=== PATIENT | male | born 1950 | race Caucasian/White ===

== ENCOUNTER 2017-07-27 08:43 | Outpatient (CLI) | payer MEDICARE, BC | END 2017-07-27 08:44 | disposition home or self-care (01) | LOC: CTENTCT 08:43 | PROVIDERS: ATTEND Otolaryngology Plastic Surgery within the Head & Neck | DX: J32.8 Other chronic sinusitis (principal) | CPT/HCPCS: 70486 ==

== ENCOUNTER 2017-07-29 07:49 | Day surgery (SDC) | payer MEDICARE, BC ==
[2017-07-28 13:46] VITALS: BMI 24.9
[2017-07-29 08:36] LABS: Hematocrit 43.1 % (42.0-52.0)
[2017-07-29] MEDS ORDERED: Oxymetazoline HCl 0.05% ( 15 ML ) ONE ×2 (08:42→10:04)
[2017-07-29 08:55] LABS: Anion Gap 7 mmol/L (10-20); BUN (Urea Nitrogen) 14 mg/dL (8.4-25.7); Calc. Creatinine Clearance 88 mL/min (70-130); Calcium 9.2 mg/dL (7.8-10.44); Carbon Dioxide 31 mmol/L (23-31); Chloride 104 mmol/L (98-107); Estimated GFR-MDRD 69
[2017-07-29] MEDS ORDERED: Fentanyl 100 MCG/2 ML VIAL ONE (10:02)
[2017-07-29] MEDS ORDERED: Lidocaine 2% w/Epinephrine 1:200K 20 ML VIAL ONE (10:03)
[2017-07-29] MEDS ORDERED: Bacitracin Zinc Ointment 30 gm TUBE ONE (10:04)
[2017-07-29] MEDS ORDERED: Lidocaine 1% PF 5 ML VIAL ONE (10:15)
[2017-07-29] MEDS ORDERED: Metoclopramide HCl 10 MG/2 ML VIAL ONE (10:15)
[2017-07-29] MEDS ORDERED: Ondansetron HCl/PF 4 MG/2 ML Vial ONE (10:15)
[2017-07-29] MEDS ORDERED: Succinylcholine Chloride 20 MG/ML 10 ml SYRINGE FS ONE (10:15)
[2017-07-29] MEDS ORDERED: Propofol 200 MG/20 ML VIAL ONE (10:15)
[2017-07-29] MEDS ORDERED: Dexamethasone 20 MG/5 ML VIAL ONE (10:15)
[2017-07-29] MEDS ORDERED: Ketorolac Tromethamine 30 MG/ML VIAL ONE (10:15)
--- NOTE | 2017-07-29 12:01 | OP ---
DATE OF PROCEDURE: 07/29/2017 PREOPERATIVE DIAGNOSES: 1. Chronic rhinosinusitis. 2. Nasal polyposis. 3. Nasal septal deviation. 4. Bilateral inferior turbinate hypertrophy. 5. Nasal obstruction. POSTOPERATIVE DIAGNOSES: 1. Chronic rhinosinusitis. 2. Nasal polyposis. 3. Nasal septal deviation. 4. Bilateral inferior turbinate hypertrophy. 5. Nasal obstruction. PROCEDURES PERFORMED: 1. Bilateral endoscopic sinus surgery, total ethmoidectomies. 2. Bilateral endoscopic sinus surgery, maxillary antrostomies. 3. Bilateral endoscopic sinus surgery, frontal sinusotomy. 4. Bilateral endoscopic sinus surgery, sphenoidotomies. 5. Nasal septoplasty. 6. Bilateral inferior turbinate submucosal resection. SURGEON: Johan Blanco M.D. ESTIMATED BLOOD LOSS: 100 mL COMPLICATIONS: None. ANESTHESIA: GETA. PROCEDURE IN DETAIL: Septoplasty and bilateral inferior turbinate submucosal resection: General en dotracheal anesthesia was obtained by the Anesthesia staff. Tube was secured in the left lower lip. Patient was then placed in the beach chair position, and Afrin pledgets were placed in the nasal c avity. Injections of 1% lidocaine with 1:100,000 epinephrine were made into the nasal septum as wel l as the inferior turbinates. Patient was then prepped and draped in standard surgical fashion for nasal surgery. Following this, the Afrin pledgets were removed. A Lyle incision was made on the left nasal septum. Submucoperichondrial dissection was performed. The deviated portions of the se ptum included portions of the cartilage and the bony septum. These isolated areas were removed usin g three cutting rongeurs. There was noted to be a large dorsal and caudal strut, left intact for baltazar pport of the nose. The mucoperichondrial flaps were then reapproximated using a 4-0 gut stitch. An y straight pieces of cartilage were crushed prior to this and placed between the mucoperichondrial f laps. Following this, the inferior turbinates were then punctured with a submucosal coblation wand, and submucosal coblations were performed of multiple areas of the inferior portion of the anterior inferior turbinate. Please note that the submucosal microdebrider was used to submucosally resect the anterior inferior portions of the inferior turbinates bilaterally. Following this, the inferior turbinates were outfr actured with a [place] elevator. Following this, the 0 degree scope was advanced to the middle meatus . Large polyps were noted in the ethmoidal area and uncinate process as well as the maxillary sinus ostia area. It was removed using straight and upbiting Blakesley forceps. Following this, the unc inate process was anteriorly fractured using the ball-ended probe bilaterally and was removed using upbiting Blakesley forceps and the microdebrider. Following this, the natural maxillary sinus ostia was identified using the ball-ended probe using the upbiting Blakesley forceps and the straight juany rodebrider. The maxillary sinus ostia was gently widened bilaterally. Polypoid tissue was removed from the area. Following this, the ethmoidal bulla was identified bilaterally and then was puncture d on its medial and inferior aspect with the microdebrider. The ethmoidal bulla was then removed us ing upbiting Blakesley forceps and the microdebrider bilaterally. Following this, the grand lamella was identified and was punctured into the posterior ethmoidal cells. Working from posterior to ant erior, the ethmoidal cells were opened in a mucosal-sparing technique. Following this, a 45-degree scope and the upbiting 40-degree curved microdebrider blade was used to further open the frontal rec ess cells and identify the frontal sinus ostia bilaterally and widened the frontal sinus ostia using the 40-degree microdebrider. Following this, the sphenoid sinuses were approach through the previo us ethmoidectomy and sphenoidotomies were created bilaterally with the microdebrider and were widene d medially and inferiorly with the microdebrider. Following this, the nasal cavity was irrigated. MeroPacks were placed within the middle meatus. Coto splints were placed and secured. The patient tolerated the procedure well.
--- NOTE | 2017-07-29 13:25 | EKG ---
Test Reason : PREOP Blood Pressure : / mmHG Vent. Rate : 067 BPM Atrial Rate : 067 BPM P-R Int : 162 ms QRS Dur : 114 ms QT Int : 394 ms P-R-T Axes : 054 074 052 degrees QTc Int : 416 ms Sinus rhythm with Premature atrial complexes Non-specific intra-ventricular conduction delay When compared with ECG of 05-AUG-2016 14:27, Premature atrial complexes are now Present Confirmed by DR. Santhosh SMITH ([id number]) on 07/29/2017 1:25:22 PM Referred By: JENS Confirmed By:DR. Santhosh SMITH
== END 2017-07-29 13:00 | disposition home or self-care (01) ==
LOC: SDC 07:49
PROVIDERS: ATTEND Otolaryngology Plastic Surgery within the Head & Neck
PROC: 099R8ZZ Drainage of Left Maxillary Sinus, Via Natural or Artificial Opening Endoscopic (ICD-10-PCS; principal; 2017-07-29)
PROC: 099Q8ZZ Drainage of Right Maxillary Sinus, Via Natural or Artificial Opening Endoscopic (ICD-10-PCS; 2017-07-29)
PROC: 09TV8ZZ Resection of Left Ethmoid Sinus, Via Natural or Artificial Opening Endoscopic (ICD-10-PCS; 2017-07-29)
PROC: 09TU8ZZ Resection of Right Ethmoid Sinus, Via Natural or Artificial Opening Endoscopic (ICD-10-PCS; 2017-07-29)
PROC: 09BT8ZZ Excision of Left Frontal Sinus, Via Natural or Artificial Opening Endoscopic (ICD-10-PCS; 2017-07-29)
PROC: 09BS8ZZ Excision of Right Frontal Sinus, Via Natural or Artificial Opening Endoscopic (ICD-10-PCS; 2017-07-29)
PROC: 09CX8ZZ Extirpation of Matter from Left Sphenoid Sinus, Via Natural or Artificial Opening Endoscopic (ICD-10-PCS; 2017-07-29)
PROC: 09CW8ZZ Extirpation of Matter from Right Sphenoid Sinus, Via Natural or Artificial Opening Endoscopic (ICD-10-PCS; 2017-07-29)
PROC: 09RM07Z Replacement of Nasal Septum with Autologous Tissue Substitute, Open Approach (ICD-10-PCS; 2017-07-29)
PROC: 09TL0ZZ Resection of Nasal Turbinate, Open Approach (ICD-10-PCS; 2017-07-29)
DX: J32.9 Chronic sinusitis, unspecified (principal); J33.9 Nasal polyp, unspecified; J34.2 Deviated nasal septum; J34.3 Hypertrophy of nasal turbinates; K21.9 Gastro-esophageal reflux disease without esophagitis; I10 Essential (primary) hypertension; Z79.01 Long term (current) use of anticoagulants; Z79.82 Long term (current) use of aspirin; Z79.51 Long term (current) use of inhaled steroids; Z79.899 Other long term (current) drug therapy; Z88.2 Allergy status to sulfonamides; Z90.49 Acquired absence of other specified parts of digestive tract; Z98.890 Other specified postprocedural states
CPT/HCPCS: 36415; 80048; 85014; 85018; 93005; 93010; J0131; J1100; J1170; J1885; J2001; J2405; J2704; J2765; J3010

== ENCOUNTER 2018-04-20 08:46 | Outpatient (CLI) | payer MEDICARE, BC ==
[2018-04-20 10:15] LABS: INR-International Normal Ratio 1.2; Prothrombin Time 15.4 SEC (12.0-14.7)
[2018-04-20 10:21] LABS: Anion Gap 10 mmol/L (10-20); BUN (Urea Nitrogen) 14 mg/dL (8.4-25.7); Calc. Creatinine Clearance 0 mL/min (70-130); Calcium 8.8 mg/dL (7.8-10.44); Carbon Dioxide 26 mmol/L (23-31); Chloride 111 mmol/L (98-107); Estimated GFR-MDRD 67; Glucose 113 mg/dL (80-115); Potassium 4.5 mmol/L (3.5-5.1); Sodium 142 mmol/L (136-145)
[2018-04-20 10:37] LABS: Hemoglobin 13.2 g/dL (14.0-18.0); Mean Corpuscular HGB CONC 32.5 g/dL (32.0-36.0); Mean Corpuscular Hemoglobin 34.5 pg (27.0-31.0); Mean Platelet Volume 7.5 fL (7.4-10.4); Platelet Count 169 thou/uL (130-400); RBC Distribution Width 12.9 % (11.5-14.5); Red Blood Cell (RBC) Count 3.83 mill/uL (4.70-6.10); White Blood Cell (WBC) Count 4.3 thou/uL (4.8-10.8)
== END 2018-04-20 08:47 | disposition home or self-care (01) ==
LOC: LABBT 08:46
PROVIDERS: ATTEND Internal Medicine Cardiovascular Disease
DX: Z01.812 Encounter for preprocedural laboratory examination (principal); I48.3 Typical atrial flutter
CPT/HCPCS: 80048; 85027; 85610

== ENCOUNTER → 2018-04-22 | Day surgery (SDC) | payer MEDICARE, BC ==
[2018-04-20 09:13] VITALS: BMI 24.9
--- NOTE | 2018-04-22 10:16 | OP ---
CARDIOLOGY PROCEDURE NOTE: Date: 04/22/18 PREPROCEDURE DIAGNOSIS: Atrial flutter. SUMMARY: Mr. Alcantara is a very pleasant 67-year-old white gentleman who comes to the outpatient area for bhumika nned cardioversion. He presented to the office earlier this week in atrial flutter. Symptomatic. The anesthesiology department provided sedation for the patient. Please see their notes for details). After adequate sedation was achieved, one single synchronized 100 joules direct current cardioversio n was delivered successfully, converting him from atrial flutter to sinus rhythm. Patient tolerated t he procedure well. RECOMMENDATIONS: 1. Continue Eliquis and increase dose of flecainide. 2. Follow up in the office in 1 month. 3. EP consultation for consideration of flutter ablation.
== END ==
LOC: CCL 07:09
PROVIDERS: ATTEND Internal Medicine Cardiovascular Disease
DX: I48.3 Typical atrial flutter (principal); E78.5 Hyperlipidemia, unspecified; I10 Essential (primary) hypertension; Z88.2 Allergy status to sulfonamides; Z79.01 Long term (current) use of anticoagulants; Z79.82 Long term (current) use of aspirin; Z79.899 Other long term (current) drug therapy
CPT/HCPCS: 92960

== ENCOUNTER 2018-06-09 08:41 | Outpatient (CLI) | payer MEDICARE, BC ==
[2018-06-09 10:42] LABS: #Basophils 0.1 thou/uL (0.0-0.2); #Eosinphils 0.5 thou/uL (0.0-0.7); #Lymphocytes 0.7 thou/uL (1.20-3.40); #Monocytes 0.3 thou/uL (0.11-0.59); #Neutrophils 1.7 thou/uL (1.40-6.50); %Eosinophils 15.4 % (0.0-10.0); %Lymphocytes 21.5 % (21.0-51.0); %Monocytes 10.1 % (0.0-10.0); Hemoglobin 13.2 g/dL (14.0-18.0); Mean Corpuscular HGB CONC 32.4 g/dL (32.0-36.0); Mean Corpuscular Hemoglobin 34.4 pg (27.0-31.0); Mean Platelet Volume 7.5 fL (7.4-10.4); Platelet Count 222 thou/uL (130-400); RBC Distribution Width 12.8 % (11.5-14.5); Red Blood Cell (RBC) Count 3.82 mill/uL (4.70-6.10); White Blood Cell (WBC) Count 3.4 thou/uL (4.8-10.8)
[2018-06-09 10:53] LABS: INR-International Normal Ratio 1.1; Prothrombin Time 14.1 SEC (12.0-14.7)
[2018-06-09 11:06] LABS: Anion Gap 9 mmol/L (10-20); BUN (Urea Nitrogen) 17 mg/dL (8.4-25.7); Calc. Creatinine Clearance 0 mL/min (70-130); Calcium 8.9 mg/dL (7.8-10.44); Carbon Dioxide 28 mmol/L (23-31); Chloride 108 mmol/L (98-107); Estimated GFR-MDRD 73; Glucose 90 mg/dL (80-115); Potassium 4.4 mmol/L (3.5-5.1); Sodium 141 mmol/L (136-145)
[2018-06-09] MEDS ORDERED: Iopamidol 370 76% 100 ML VIAL ONE (14:07)
--- NOTE | 2018-06-09 14:30 | CT ---
CTA CHEST WITH CONTRAST: Comparison: None. History: Atrial fibrillation. Patient is having ablation next week. Technique: Multiple contiguous axial images were obtained in a CTA of the chest with contrast. FINDINGS: There is thickening of the left ventricular wall. No thrombus is seen within the left atrial appendag e. There is a tricuspid aortic valve. No pleural effusion is seen. No hilar or mediastinal lymphadeno krissy are seen. There are calcified right mediastinal lymph nodes. No suspicious pulmonary nodules are seen. No pneumothorax or pleural effusions are seen. Mild degener ative changes are seen in the spine. IMPRESSION: No focal abnormality seen on this exam. POS: ANGELA
--- NOTE | 2018-06-10 07:54 | EKG ---
Test Reason : Blood Pressure : / mmHG Vent. Rate : 061 BPM Atrial Rate : 061 BPM P-R Int : 152 ms QRS Dur : 108 ms QT Int : 392 ms P-R-T Axes : 008 081 057 degrees QTc Int : 394 ms Normal sinus rhythm Normal ECG When compared with ECG of 29-JUL-2017 08:17, Premature atrial complexes are no longer Present Confirmed by DR. Santhosh SMITH ([id number]) on 06/10/2018 7:53:55 AM Referred By: [facility] Confirmed By:DR. Santhosh SMITH
== END 2018-06-09 08:42 | disposition home or self-care (01) ==
LOC: CT 08:41
PROVIDERS: ATTEND Internal Medicine Cardiovascular Disease
DX: I48.91 Unspecified atrial fibrillation (principal)
CPT/HCPCS: 71275; 80048; 85025; 85610; 85730; 93005; 93010

== ENCOUNTER 2018-06-17 06:07 | Observation (INO) | payer MEDICARE, BC ==
[2018-06-17] MEDS ORDERED: Heparin 10,000 UNITS/1 ML VIAL ONE ×3 (06:54→11:13)
[2018-06-17] MEDS ORDERED: Heparin 25,000 units/D5W 500 ML ONE (07:09)
[2018-06-17] MEDS ORDERED: Fentanyl 100 MCG/2 ML VIAL ONE ×2 (07:10→10:16)
[2018-06-17] MEDS ORDERED: Midazolam HCl 2 mg/2 ml Vial ONE (07:57)
[2018-06-17] MEDS ORDERED: Phenylephrine HCL 10 MG/ML VIAL ONE (08:23)
[2018-06-17] MEDS ORDERED: Lidocaine 1% (PF) 30 ML VIAL ONE (08:31)
[2018-06-17] MEDS ORDERED: Isoproterenol 0.2 MG/1 ML AMP ONE ×2 (10:16→11:14)
[2018-06-17] MEDS ORDERED: Protamine Sulfate 250 MG/25 ML VIAL ONE (11:13)
[2018-06-17] MEDS ORDERED: PHENYLEPHRINE-NS 100 MCG/ML 10 ML SYRINGE ONE (11:13)
[2018-06-17] MEDS ORDERED: Lidocaine 1% PF 5 ML VIAL ONE (11:13)
[2018-06-17] MEDS ORDERED: Dexamethasone 20 MG/5 ML VIAL ONE (11:13)
[2018-06-17] MEDS ORDERED: Ondansetron HCl/PF 4 MG/2 ML Vial ONE (11:13)
[2018-06-17] MEDS ORDERED: PROPOFOL 200 MG/20 ML VIAL ONE (11:13)
[2018-06-17] MEDS ORDERED: ePHEDrine/0.9% NaCl/PF SYRINGE 50 mg/10 ml ONE (11:13)
[2018-06-17] MEDS ORDERED: Heparin 30,000 units/30 ml VIAL ONE (11:13)
[2018-06-17] MEDS ORDERED: Glycopyrrolate 0.2 MG/ML 5 ML SYRINGE ONE (11:13)
[2018-06-17] MEDS ORDERED: Ondansetron HCl/PF 4 MG/2 ML Vial IVP PRN (12:22)
[2018-06-17] MEDS ORDERED: HYDROmorphone 2 MG/ML VIAL SLOW IVP PRN (12:22)
[2018-06-17] MEDS ORDERED: Promethazine HCl 25 MG/ML VIAL IM PRN (12:22)
[2018-06-17] MEDS ORDERED: Promethazine HCl 25 MG/ML VIAL SLOW IVP PRN (12:22)
[2018-06-17] MEDS ORDERED: Meperidine HCl/PF 25 MG/ML VIAL SLOW IVP PRN (12:22)
[2018-06-17] MEDS ORDERED: Protamine Sulfate 50 MG/5 ML VIAL ONE ×2 (12:26→12:28)
--- NOTE | 2018-06-17 13:16 | OP ---
DATE OF PROCEDURE: 06/17/2018 PROCEDURE: Electrophysiology study and radiofrequency ablation. SURGEON: Dr. Catracho Shetty REASON FOR PROCEDURE: Mr. Alcantara is a 67-year-old male with a history of atrial fibrillation transiently well suppressed with propafenone. He also has recurrences with typical atrial flutter. He is here for a pulmonary venous isolation as well as a caval tricuspid isthmus ablation procedure. PROCEDURE: The patient received general anesthesia by the Anesthesia specialist with propofol. After adequate level of sedation achieved, the left and right femoral venous area was prepped, draped and anesthetized using some subcutaneous lidocaine and with ultrasound guidance, both veins were cannulated x2. In the left vein a 11-[place] sheath was used to advance the intracardiac ultrasound probe and a Preface sheath was used to advance a [employer]od[employer]ographs CS catheter to the right atrium in the CS position. The right femoral veins was used to advance a ThermoCool SF ST catheter to the right atrium and 3D map of the right atrium was obtained. Following that, the right-sided sheaths were exchanged to an SL1 transseptal sheaths and a transseptal puncture x2 was performed under fluoroscopic and intracardiac echo monitoring x2. Heparin was administered at this point and ACTs were checked, heparin adjusted to over 350 throughout the case. Following that, the 3D map of the left atrium was performed and utilizing this pulmonary venous isolation procedure was performed. Posterior was also isolated. Isuprel was administered and pulmonary vein reconnections were re-ablated in the right upper pulmonary vein. Following that, the catheter was removed from the left atrium and heparin was stopped. Basic EP study was performed with the following findings. The Wenckebach was 240 milliseconds. Concentric retrograde VA activation was seen on isuprel AV castillo ERP was 600/170 milliseconds. AV Wenckebach cycle length was 210 milliseconds after isuprel. Transient typical appearing atrial flutter was induced with catheter manipulation with cycle length of 240 milliseconds. The cavotricuspid isthmus ablation was also performed. It eliminated the atrial flutter. The transisthmus time increased from 40 milliseconds to 130 milliseconds. otal of 33 minutes of ablation was delivered at 40W. The fluoroscopy of the cardiac borders and intracardiac ice catheter did not reveal any pericardial effusion at the end of the case. Catheter was removed and protamine was administered and sheaths were pulled in the pathology laboratory technologist. The patient tolerated procedure well, no complications noted. Individual temperature probe was used through the case for monitoring excessive heating of the esophagus. CONCLUSION: 1. Successful pulmonary venous isolation, as well as posterior wall of isolation procedure. 2. Cavotricuspid isthmus ablation performed for typical atrial flutter inducible after PVI eliminating the atrial flutter. 3. No evidence of accessory pathway. 4. No dual AV castillo physiology. PLAN: Routine postoperative care. Resume anticoagulation. MTDD
[2018-06-17] MEDS ORDERED: Acetaminophen/Codeine 30-300mg Tablet PO PRN ×2 (14:21)
[2018-06-17 16:09] VITALS: BMI 25.9
[2018-06-17] MEDS: Apixaban 5 MG TAB PO SCH (21:39)
[2018-06-17] MEDS: Flecainide 50 MG TAB PO SCH (21:39)
[2018-06-18 08:21] VITALS: TEMP 97.9
[2018-06-18] MEDS: Apixaban 5 MG TAB PO SCH (08:51)
[2018-06-18] MEDS: Flecainide 50 MG TAB PO SCH (08:52)
[2018-06-18 08:56] VITALS: BP 110/58
[2018-06-18] MEDS ORDERED: azaTHIOprine 50 MG TAB PO SCH (09:00)
[2018-06-18] MEDS ORDERED: Multivitamin W/ Minerals 1 TAB PO SCH (09:00)
[2018-06-18] MEDS ORDERED: Lisinopril 20 MG TAB PO SCH (09:00)
[2018-06-18] MEDS ORDERED: Calcium Carbonate + Vit D 1 TAB PO SCH (09:00)
[2018-06-18] MEDS ORDERED: Loratadine 10 MG TAB PO SCH (09:00)
[2018-06-18] MEDS ORDERED: Fluticasone Propionate Nasal Spray 16 gm Bottle NASAL SCH (09:00)
[2018-06-18] MEDS ORDERED: Stress 600 With Zinc 1 TAB PO SCH (09:00)
[2018-06-18] MEDS ORDERED: Mesalamine DR 400 mg Capsule PO SCH (09:00)
[2018-06-18] MEDS ORDERED: Doxazosin Mesylate 4 MG TAB PO SCH (09:00)
[2018-06-18] MEDS ORDERED: Furosemide 40 MG TAB PO PRN (09:56)
--- NOTE | 2018-06-18 10:40 | DIS ---
ADMITTING PHYSICIAN: Dr. Catracho Shetty OPERATING PHYSICIAN: Dr. Catracho Shetty DATE OF ADMISSION: 06/17/2018 DATE OF DISCHARGE: 06/18/2018 PROCEDURES PERFORMED: Include electrophysiology study with 3D mapping and radiofrequency ablation. Diagnoses; persistent atrial fibrillation, typical atrial flutter. HOSPITAL COURSE: Mr. Alcantara is a very pleasant 67-year-old gentleman with a history of persistent atrial fibrillation that was previously well suppressed with propafenone. He has had recurrences de spite antiarrhythmic therapy of typical atrial flutter and was admitted on the for an elective o utpatient PVAI as well as CTI ablation. He received a total of 30 minute energy lesions delivered. This was a successful PVAI in addition to a posterior wall isolation. He also had a cavotricuspid is thmus ablation performed for his typical atrial flutter that was inducible after his PVI. There was no evidence of accessory pathway and no dual AV castillo physiology seen. He was not inducible at the e nd of the ablation both on and off Isuprel. There were no intraoperative complications. HISTORY OF PRESENT ILLNESS: Post-ablation Mr. Alcantara has been doing very well. He has maintained sinus rhythm over the night and has been up ambulating in his room. He is tolerating p.o. intake we ll and is voiding normally. He denies any chest pain, shortness of breath, dyspnea on exertion or sw elling in the extremities. His bilateral groin sites are stable without hematoma, drainage, or signs of complication. EKG and telemetry tracings reveal sinus rhythm. There was a brief episode of what was possibly a 2:1 atypical flutter, but self-terminated and he is now in sinus rhythm. He is euvol emic by his physical exam. His lungs a clear to auscultation. Heart tones are regular irregular. T here is no concern for a tamponade or pericardial effusion this morning. He does not have any periph eral edema. DISCHARGE MEDICATIONS: He is to continue home medications of mesalamine, calcium with vitamin D, asp irin 81 mg daily, Eliquis 5 mg p.o. b.i.d. (this was resumed last night), Imuran, vitamin B., Nasacor t, multivitamin, metoprolol 25 mg p.o. daily. Nexium, doxazosin mesylate, lisinopril, fexofenadine, and prescriptions are provided for Carafate 1 gram p.o. before meals and at bedtime x2 weeks, potassi um chloride 20 mEq p.o. as needed if taking Lasix, Protonix 40 mg p.o. daily x30 days and Lasix 40 mg p.o. p.r.n. shortness of breath and swelling of the extremities. POST-ABLATION INSTRUCTIONS: Instructions have been gone over in detail with the patient and are avai lable in his discharge instructions. No soaking baths or lifting greater than 10 pounds for 1 week. Showers are okay. He is to do light activity for 1 week and then resume activity as tolerated and g radually. We will continue Eliquis without interruption. We are stopping his flecainide unless recu rrence of his arrhythmias are seen post-ablation. He will be receiving an event monitor in the mail which he will keep for 5-6 months post-ablation. He will be provided further instruction about this in clinic at his followup appointment in 4-6 weeks. The patient voices understanding and all questio ns have been answered. He is stable for discharge today.
[2018-06-18] MEDS ORDERED: Sucralfate 1 GM TAB PO SCH (11:30)
[2018-06-18] MEDS ORDERED: Prevnar 13-Val Conj/PF 0.5 ML SYRINGE IM ONE (21:00)
[2018-06-19] MEDS ORDERED: Potassium Chloride 20 MEQ TAB PO SCH (09:00)
--- NOTE | 2018-06-21 10:07 | EKG ---
Test Reason : POST ABATION Blood Pressure : / mmHG Vent. Rate : 100 BPM Atrial Rate : 100 BPM P-R Int : 190 ms QRS Dur : 114 ms QT Int : 376 ms P-R-T Axes : 067 079 043 degrees QTc Int : 485 ms Normal sinus rhythm Minimal voltage criteria for LVH, may be normal variant Prolonged QT Abnormal ECG When compared with ECG of 09-JUN-2018 10:01, Vent. rate has increased BY 39 BPM Nonspecific T wave abnormality now evident in Inferior leads QT has lengthened Confirmed by DR. Ed SMITH ([id number]) on 06/21/2018 10:06:31 AM Referred By: KATELYNN Confirmed By:DR. Ed SMITH
--- NOTE | 2018-06-21 10:09 | EKG ---
Test Reason : Blood Pressure : / mmHG Vent. Rate : 070 BPM Atrial Rate : 070 BPM P-R Int : 130 ms QRS Dur : 110 ms QT Int : 378 ms P-R-T Axes : 046 072 053 degrees QTc Int : 408 ms Normal sinus rhythm Incomplete right bundle branch block Nonspecific ST abnormality Abnormal ECG When compared with ECG of 17-JUN-2018 14:08, (Unconfirmed) QT has shortened Confirmed by DR. Ed SMITH ([id number]) on 06/21/2018 10:09:11 AM Referred By: KATELYNN Confirmed By:DR. Ed SMITH
== END 2018-06-18 11:18 | disposition home or self-care (01) ==
LOC: CCL 06:07 → 2SW 16:00
PROVIDERS: ADMIT Internal Medicine Cardiovascular Disease; ATTEND Internal Medicine Cardiovascular Disease
PROC: 4A023FZ Measurement of Cardiac Rhythm, Percutaneous Approach (ICD-10-PCS; principal; 2018-06-17)
PROC: 02583ZZ Destruction of Conduction Mechanism, Percutaneous Approach (ICD-10-PCS; 2018-06-17)
PROC: 02K83ZZ Map Conduction Mechanism, Percutaneous Approach (ICD-10-PCS; 2018-06-17)
DX: I48.3 Typical atrial flutter (principal); I48.1 Persistent atrial fibrillation; Z79.01 Long term (current) use of anticoagulants; Z79.82 Long term (current) use of aspirin; Z79.899 Other long term (current) drug therapy; Z88.2 Allergy status to sulfonamides
CPT/HCPCS: 76942; 85347 ×2; 93005 ×2; 93613; 93623; 93656; 93657; 93662; C1730; C1731; C1732 ×2; C1759; C1769; G0378; 93010; J1100; J1644; J2001; J2250; J2370; J2405; J2704; J2720; J3010; J7500

== ENCOUNTER 2021-09-23 14:24 | Inpatient (IN) | payer MEDICARE, BC ==
[2021-09-23 15:06] LABS: #Lymphocytes 0.4 thou/uL (1.20-3.40); #Monocytes 0.1 thou/uL (0.11-0.59); #Neutrophils 4.5 thou/uL (1.40-6.50); %Basophils 0.5 % (0.0-1.0); %Eosinophils 0.6 % (0.0-10.0); %Lymphocytes 7.3 % (21.0-51.0); %Monocytes 2.8 % (0.0-10.0); %Neutrophils 88.9 % (42.0-75.0); Hemoglobin 14.4 g/dL (14.0-18.0); Mean Corpuscular HGB CONC 33.3 g/dL (32.0-36.0); Mean Corpuscular Hemoglobin 35.5 pg (27.0-31.0); Mean Platelet Volume 8.1 fL (7.4-10.4); Platelet Count 165 thou/uL (130-400); RBC Distribution Width 13.1 % (11.5-14.5); Red Blood Cell (RBC) Count 4.05 mill/uL (4.70-6.10)
[2021-09-23] MEDS ORDERED: Diltiazem 125 MG/25 ML ONE (15:11)
[2021-09-23 15:21] LABS: ALT (SGPT) 15 U/L (8-55); AST (SGOT) 17 U/L (5-34); Albumin 4.1 g/dL (3.4-4.8); Alkaline Phosphatase 68 U/L (40-110); Anion Gap 12 mmol/L (10-20); BUN (Urea Nitrogen) 15 mg/dL (8.4-25.7); CK (CPK) 200 U/L (30-200); Calc. Creatinine Clearance 0 mL/min (70-130); Calcium 9.1 mg/dL (7.8-10.44); Carbon Dioxide 25 mmol/L (23-31); Chloride 105 mmol/L (98-107); Globulin 3.5 g/dL (2.4-3.5); Glucose 192 mg/dL (83-110); Protein, Total 7.6 g/dL (5.8-8.1); Sodium 138 mmol/L (136-145)
[2021-09-23 15:22] LABS: MDiff Complete? YES; Macrocytosis SLIGHT = 6-15 cells (100X) (0-5/hpf); Platelet Morphology Comment Appears Adequate; Polychromasia SLIGHT = 2-3 cells (100X) (0-2/hpf)
[2021-09-23 16:22] LABS: Magnesium 2.1 mg/dL (1.6-2.6)
[2021-09-23] MEDS ORDERED: Enoxaparin Sodium 100 MG/ML SYRINGE ONE (16:40)
[2021-09-23] MEDS ORDERED: Diltiazem 125 MG in Sodium Chloride 0.9% 100 ML IVPB SCH ×2 (17:15→17:20)
[2021-09-23] MEDS ORDERED: Digoxin 0.25 MG TAB PO SCH (18:00)
[2021-09-23 18:05] LABS: Troponin I 0.158 ng/mL (< 0.028)
[2021-09-23] MEDS ORDERED: Calcium Carbonate 500 MG ChewTAB PO PRN (18:29)
[2021-09-23] MEDS ORDERED: Acetaminophen 325 MG TAB PO PRN (18:29)
[2021-09-23] MEDS ORDERED: Ondansetron ODT 4 MG TAB PO PRN (18:29)
[2021-09-23] MEDS ORDERED: Senokot S 8.6-50 MG TAB PO PRN (18:29)
[2021-09-23] MEDS ORDERED: Ondansetron PF 4 MG/2 ML Vial IVP PRN (18:29)
[2021-09-23] MEDS ORDERED: Communication Order-Pharmacy FS ONE (18:40)
[2021-09-23] MEDS: Sodium Chloride 0.9% 1,000 ML IV SCH (20:28)
[2021-09-24] MEDS: Sodium Chloride 0.9% 1,000 ML IV SCH (02:34)
[2021-09-24] MEDS ORDERED: Enoxaparin Sodium 100 MG/ML SYRINGE SC SCH (05:00)
[2021-09-24 05:33] LABS: #Basophils 0.1 thou/uL (0.0-0.2); #Eosinphils 0.4 thou/uL (0.0-0.7); #Lymphocytes 1.4 thou/uL (1.20-3.40); #Monocytes 0.8 thou/uL (0.11-0.59); #Neutrophils 3.7 thou/uL (1.40-6.50); %Basophils 0.9 % (0.0-1.0); %Eosinophils 5.8 % (0.0-10.0); %Lymphocytes 22.1 % (21.0-51.0); %Monocytes 13.1 % (0.0-10.0); %Neutrophils 58.2 % (42.0-75.0); Hemoglobin 12.8 g/dL (14.0-18.0); Mean Corpuscular HGB CONC 31.8 g/dL (32.0-36.0); Mean Corpuscular Hemoglobin 34.6 pg (27.0-31.0); Platelet Count 158 thou/uL (130-400); RBC Distribution Width 13.1 % (11.5-14.5); White Blood Cell (WBC) Count 6.3 thou/uL (4.8-10.8)
[2021-09-24 05:47] LABS: Anion Gap 9 mmol/L (10-20); BUN (Urea Nitrogen) 14 mg/dL (8.4-25.7); Calc. Creatinine Clearance 102 mL/min (70-130); Calcium 8.2 mg/dL (7.8-10.44); Carbon Dioxide 27 mmol/L (23-31); Chloride 110 mmol/L (98-107); Glucose 93 mg/dL (83-110); Sodium 142 mmol/L (136-145)
[2021-09-24 06:14] LABS: CKMB 4.1 ng/mL (0-6.6)
[2021-09-24] MEDS ORDERED: Potassium Chloride 20 MEQ TAB PO SCH (08:00)
[2021-09-24] MEDS ORDERED: predniSONE 20 MG TAB PO SCH ×2 (08:00→08:45)
[2021-09-24] MEDS ORDERED: MESALAMINE 1.2 GM PO SCH (09:45)
[2021-09-24] MEDS: Loratadine 10 MG TAB PO SCH (09:51)
[2021-09-24] MEDS: Multivit, Therapeutic 1 TAB PO SCH (09:51)
[2021-09-24 10:24] LABS: SARS-CoV-2 PCR by NAA Not Detected (NotDetected)
[2021-09-24] MEDS: azaTHIOprine 50 MG TAB PO SCH (11:34)
[2021-09-24] MEDS: Fluticasone Propionate Nasal Spray 16 gm Bottle NASAL SCH (11:34)
[2021-09-24] MEDS: Mesalamine DR 400 mg Capsule PO SCH (11:35)
[2021-09-24] MEDS: Diltiazem 125 MG in Sodium Chloride 0.9% 100 ML IVPB SCH ×2 (11:37→21:51)
[2021-09-24] MEDS: Metoprolol Tartrate 5 MG/5 ML VIAL IVP PRN (12:36)
[2021-09-24] MEDS ORDERED: Apixaban 2.5 MG TAB PO SCH (18:00)
[2021-09-24] MEDS: Apixaban 5 MG TAB PO SCH (21:51)
[2021-09-25] MEDS: Metoprolol Tartrate 5 MG/5 ML VIAL IVP PRN (03:52)
[2021-09-25 05:15] LABS: #Eosinphils 0.4 thou/uL (0.0-0.7); #Lymphocytes 1.3 thou/uL (1.20-3.40); #Neutrophils 4.9 thou/uL (1.40-6.50); %Basophils 0.6 % (0.0-1.0); %Eosinophils 5.3 % (0.0-10.0); %Lymphocytes 16.9 % (21.0-51.0); %Monocytes 12.7 % (0.0-10.0); %Neutrophils 64.5 % (42.0-75.0); Hemoglobin 13.3 g/dL (14.0-18.0); Mean Corpuscular Hemoglobin 34.8 pg (27.0-31.0); Platelet Count 163 thou/uL (130-400); RBC Distribution Width 12.9 % (11.5-14.5); Red Blood Cell (RBC) Count 3.81 mill/uL (4.70-6.10); White Blood Cell (WBC) Count 7.6 thou/uL (4.8-10.8)
[2021-09-25 05:28] LABS: Anion Gap 9 mmol/L (10-20); BUN (Urea Nitrogen) 14 mg/dL (8.4-25.7); Calc. Creatinine Clearance 89 mL/min (70-130); Calcium 8.7 mg/dL (7.8-10.44); Carbon Dioxide 26 mmol/L (23-31); Chloride 109 mmol/L (98-107); Glucose 101 mg/dL (83-110); Potassium 3.9 mmol/L (3.5-5.1); Sodium 140 mmol/L (136-145)
[2021-09-25 06:23] VITALS: BMI 20.3
[2021-09-25] MEDS ORDERED: Fentanyl 100 MCG/2 ML VIAL ONE (06:32)
[2021-09-25] MEDS ORDERED: HYDROmorphone 2 MG/ML VIAL ONE (06:32)
[2021-09-25] MEDS ORDERED: Sodium Chloride 0.9% 10 ML ONE (06:33)
[2021-09-25] MEDS ORDERED: Protamine Sulfate 50 MG/5 ML VIAL ONE ×2 (06:42→10:29)
[2021-09-25] MEDS ORDERED: Heparin 10,000 UNITS/ 10 ML VIAL ONE (06:42)
[2021-09-25] MEDS ORDERED: Isoproterenol 0.2 MG/1 ML AMP ONE (07:02)
[2021-09-25] MEDS ORDERED: Heparin 25,000 units/D5W 500 ML ONE (07:06)
[2021-09-25] MEDS ORDERED: ePHEDrine 50 MG/ML VIAL ONE (08:24)
[2021-09-25] MEDS ORDERED: Dexamethasone 20 MG/5 ML VIAL ONE (08:24)
[2021-09-25] MEDS ORDERED: Ondansetron PF 4 MG/2 ML Vial ONE (08:24)
[2021-09-25] MEDS ORDERED: Phenylephrine 10 MG/ML VIAL ONE (08:24)
[2021-09-25] MEDS ORDERED: Lidocaine 1% PF 5 ML VIAL ONE (08:24)
[2021-09-25] MEDS ORDERED: PROPOFOL 200 MG/20 ML VIAL ONE (08:24)
[2021-09-25] MEDS ORDERED: Rocuronium Bromide 10 MG/ML (10ML VIAL) ONE (08:24)
[2021-09-25] MEDS ORDERED: SUGAMMADEX SODIUM 200 MG/2 ML VIAL ONE (09:21)
[2021-09-25] MEDS ORDERED: EPINEPHrine 1 MG/10 ML Abboject SYRINGE ONE (09:25)
[2021-09-25] MEDS ORDERED: EPINEPHrine 1 MG/ML AMP ONE (09:25)
[2021-09-25] MEDS: Loratadine 10 MG TAB PO SCH ×2 (11:29→13:47)
[2021-09-25] MEDS: Apixaban 5 MG TAB PO SCH ×2 (11:29→13:46)
[2021-09-25] MEDS: azaTHIOprine 50 MG TAB PO SCH ×2 (11:30→13:48)
[2021-09-25] MEDS: Mesalamine DR 400 mg Capsule PO SCH ×2 (11:30→13:50)
[2021-09-25] MEDS: Multivit, Therapeutic 1 TAB PO SCH ×2 (11:30→13:48)
[2021-09-25] MEDS: Fluticasone Propionate Nasal Spray 16 gm Bottle NASAL SCH ×2 (11:30→13:50)
[2021-09-25 12:32] VITALS: BP 119/59; TEMP 97.4
[2021-09-25] MEDS ORDERED: Ketorolac Tromethamine 30 MG/ML VIAL IVP PRN (12:59)
== END 2021-09-25 15:38 | disposition home or self-care (01) | DRG 273 ==
LOC: ERS 14:24 → 2NO 16:37
PROVIDERS: ADMIT Internal Medicine; ATTEND Internal Medicine
PROC: B24BZZ4 Ultrasonography of Heart with Aorta, Transesophageal (ICD-10-PCS; principal; 2021-09-23)
PROC: 02583ZZ Destruction of Conduction Mechanism, Percutaneous Approach (ICD-10-PCS; 2021-09-23)
PROC: 4A023FZ Measurement of Cardiac Rhythm, Percutaneous Approach (ICD-10-PCS; 2021-09-23)
PROC: 4A0234Z Measurement of Cardiac Electrical Activity, Percutaneous Approach (ICD-10-PCS; 2021-09-23)
DX: I48.92 Unspecified atrial flutter (principal); I21.A1 Myocardial infarction type 2; K50.90 Crohn's disease, unspecified, without complications; N40.0 Benign prostatic hyperplasia without lower urinary tract symptoms; Z20.822 Contact with and (suspected) exposure to COVID-19; I47.1 Supraventricular tachycardia; D75.89 Other specified diseases of blood and blood-forming organs; I48.0 Paroxysmal atrial fibrillation; K21.9 Gastro-esophageal reflux disease without esophagitis; I12.9 Hypertensive chronic kidney disease with stage 1 through stage 4 chronic kidney disease, or unspecified chronic kidney disease; J30.2 Other seasonal allergic rhinitis; G47.33 Obstructive sleep apnea (adult) (pediatric); N18.2 Chronic kidney disease, stage 2 (mild); Z90.49 Acquired absence of other specified parts of digestive tract; Z80.0 Family history of malignant neoplasm of digestive organs; Z82.49 Family history of ischemic heart disease and other diseases of the circulatory system; Z88.2 Allergy status to sulfonamides; Z79.01 Long term (current) use of anticoagulants; Z79.82 Long term (current) use of aspirin; Z79.899 Other long term (current) drug therapy
CPT/HCPCS: 36415; 71045; 80048; 80053; 82550; 82553; 82607; 82746; 83735; 83880; 84484; 85025; 85347; 93005; 93010; 93312; 93613; 93622; 93623; 93655; 93656; 93657; 93662; 96365; 96366; 96372; 96375; C1732; C1759; C1776; C1884; J0171; J1100; J1170; J1644; J1650; J2370; J2405; J2704; J2720; J3010; J3490; J7050; J7500; J7512; U0003; U0005

== ENCOUNTER 2024-07-11 15:56 | Emergency (ER) | payer BC, MEDICARE ==
[2024-07-11] MEDS ORDERED: Amoxicillin/Potassium Clav 875 MG TAB ONE (17:42)
[2024-07-11] MEDS ORDERED: Lidocaine 1% PF 5 ML VIAL ONE (19:53)
[2024-07-11] MEDS ORDERED: Lidocaine 1% (PF) 30 ML VIAL ONE (20:15)
[2024-07-11] MEDS ORDERED: Bacitracin 1 PK ONE (20:33)
== END 2024-07-11 20:46 | disposition home or self-care (01) ==
LOC: ERS 15:56
DX: S61.313A Laceration without foreign body of left middle finger with damage to nail, initial encounter (principal); W26.8XXA Contact with other sharp object(s), not elsewhere classified, initial encounter
CPT/HCPCS: 12001; 73130; 99282; J2001

== ENCOUNTER 2024-08-05 09:20 | Outpatient (CLI) | payer MEDICARE ==
[2024-08-05 10:56] LABS: %Lymphocytes 14.5 % (21.0-51.0); %Neutrophils 67.9 % (42.0-75.0); Hematocrit 40.3 % (42.0-52.0); Hemoglobin 13.2 g/dL (14.0-18.0); Mean Corpuscular HGB CONC 32.8 g/dL (32.0-36.0); Mean Corpuscular Hemoglobin 33.8 pg (27.0-31.0); Mean Corpuscular Volume 103.3 fL (78.0-98.0); Mean Platelet Volume 11.1 fL (7.4-10.4); Platelet Count 152 10x3/uL (130-400); RBC Distribution Width 14.3 % (11.5-14.5)
[2024-08-05 10:57] LABS: #Basophils 0.05 10x3/uL (0.0-0.2); %Basophils 1.2 % (0.0-1.0); %Eosinophils 6.2 % (0.0-10.0)
[2024-08-05 11:12] LABS: Anion Gap 12 mmol/L (10-20); BUN (Urea Nitrogen) 14 mg/dL (8.4-25.7); Calc. Creatinine Clearance 0 mL/min (70-130); Carbon Dioxide 26 mmol/L (23-31); Chloride 108 mmol/L (98-107); Estimated GFR 69; Glucose 90 mg/dL (83-110); Potassium 4.2 mmol/L (3.5-5.1); Sodium 142 mmol/L (136-145)
== END 2024-08-05 09:21 | disposition home or self-care (01) ==
LOC: LABBT 09:20
PROVIDERS: ATTEND Orthopaedic Surgery
DX: Z01.818 Encounter for other preprocedural examination (principal); M20.012 Mallet finger of left finger(s)
CPT/HCPCS: 80048; 85025; 93005; 93010

== ENCOUNTER 2024-08-08 06:03 | Day surgery (SDC) | payer MEDICARE ==
[2024-08-05 09:38] VITALS: BMI 25.5
[2024-08-08] MEDS ORDERED: Bupivacaine 0.25% HCL 30 ML VIAL ONE (06:28)
[2024-08-08] MEDS ORDERED: Lidocaine 1% (PF) 30 ML VIAL ONE (06:44)
[2024-08-08] MEDS ORDERED: Lidocaine 1% PF 5 ML VIAL ONE (06:54)
[2024-08-08] MEDS ORDERED: PROPOFOL 20 ML ONE ×2 (06:54→07:08)
== END 2024-08-08 08:38 | disposition home or self-care (01) ==
LOC: SDC 06:03
PROVIDERS: ATTEND Orthopaedic Surgery
PROC: 0PSVXZZ Reposition Left Finger Phalanx, External Approach (ICD-10-PCS; principal; 2024-08-08)
DX: M20.012 Mallet finger of left finger(s) (principal); I10 Essential (primary) hypertension; I48.91 Unspecified atrial fibrillation; Z90.49 Acquired absence of other specified parts of digestive tract; Z98.41 Cataract extraction status, right eye; Z98.890 Other specified postprocedural states; Z88.2 Allergy status to sulfonamides; Z79.82 Long term (current) use of aspirin; Z79.899 Other long term (current) drug therapy
CPT/HCPCS: 26432; 73140; A6223; J2704; J0665